=== PATIENT | female | born 1950 | race Two or more races ===

== ENCOUNTER 2022-08-04 15:05 | Inpatient (IN) | payer OTHER, MEDICAID ==
[~2022-08-04] VITALS: Ht 157.5 cm; Wt 64.8 kg
[2022-08-04 15:37] LABS: Basophils # (auto) 0.1 10 ^3/uL (0-0.2); Basophils % (auto) 0.9 % (0.0-2.0); Eosinophils # (auto) 0.1 10 ^3/uL (0-0.8); Eosinophils % (auto) 0.8 % (0.0-7.0); Hematocrit 38.4 % (36.0-46.0); Hemoglobin 12.9 g/dL (12.2-16.2); Lymphocytes # (auto) 2.4 10 ^3/uL (0.4-5.4); Lymphocytes % (auto) 25.6 % (10.0-50.0); Mean Corpuscular Hemoglobin 29.8 pg (28.0-32.0); Mean Corpuscular Hgb Conc. 33.6 g/dL (32.0-36.0); Mean Corpuscular Volume 88.6 fL (80.0-100.0); Monocytes # (auto) 0.6 10 ^3/uL (0-1.3); Monocytes % (auto) 6.3 % (0.0-12.0); Neutrophils # (auto) 6.3 10 ^3/uL (1.6-8.6); Neutrophils % (auto) 66.4 % (37.0-80.0); Nucleated Red Blood Cells % 0.1 %; Red Blood Cells 4.33 10^6/uL (4.0-5.20); Red Cell Distribution Width 14.2 % (11.8-14.3); White Blood Cell 9.5 10^3/uL (4.4-10.8)
[2022-08-04 15:48] LABS: Albumin 3.5 g/dL (3.4-5.0); Calcium 8.2 mg/dL (8.5-10.1); Magnesium 2.2 mg/dL (1.6-2.6); Potassium 3.9 mmol/L (3.5-5.1)
[2022-08-04 15:51] LABS: BUN/Creatinine Ratio 20.5 (10.0-20.0); Bilirubin, Total 0.4 mg/dL (0.2-1.0); Total Protein 6.7 g/dL (6.4-8.2)
[2022-08-04 15:59] LABS: INR 0.92 (0.9-1.15); Partial Thromboplastin Time 24.1 sec (24.6-33.4)
[2022-08-04] MEDS ORDERED: ASPirin 81 mg TAB PO ONE (19:45)
[2022-08-04 20:47] LABS: INR 0.97 (0.9-1.15); Partial Thromboplastin Time 24.5 sec (24.6-33.4)
[2022-08-04 21:26] LABS: Urine Bacteria FEW /hpf (None Seen); Urine Blood Negative /uL (Negative); Urine Specific Gravity 1.009 (1.001-1.035); Urine WBC 2 /hpf (0 - 5)
[2022-08-04] MEDS ORDERED: IOHEXOL 350 MG/ML 100ML IJ ONE (22:47)
[2022-08-05] MEDS ORDERED: MORPHINE SULFATE INJ 2 MG/ml SYRG IV PRN (01:15)
[2022-08-05] MEDS ORDERED: NITROGLYCERIN 0.4 MG SL TAB SL PRN (01:15)
[2022-08-05] MEDS ORDERED: cefTRIAXone 1GM/50ML D5W 50 ML IV ONE (01:15)
[2022-08-05] MEDS ORDERED: DOCUSATE SOD 100 MG CAP PO PRN (01:15)
[2022-08-05] MEDS ORDERED: ACETAMINOPHEN 325 MG TAB PO PRN (01:15)
[2022-08-05] MEDS ORDERED: ONDANSETRON HCL 4 MG/2 ML VIAL IV PRN (01:15)
[2022-08-05] MEDS: HYDROcodone-ACET 5/325MG TAB PO PRN ×2 (02:18→22:39)
[2022-08-05 05:35] LABS: Basophils # (auto) 0 10 ^3/uL (0-0.2); Basophils % (auto) 0.6 % (0.0-2.0); Eosinophils # (auto) 0.1 10 ^3/uL (0-0.8); Eosinophils % (auto) 1.6 % (0.0-7.0); Hematocrit 35.7 % (36.0-46.0); Lymphocytes # (auto) 2.9 10 ^3/uL (0.4-5.4); Lymphocytes % (auto) 37.6 % (10.0-50.0); Mean Corpuscular Hgb Conc. 33.7 g/dL (32.0-36.0); Mean Corpuscular Volume 89.1 fL (80.0-100.0); Monocytes # (auto) 0.6 10 ^3/uL (0-1.3); Monocytes % (auto) 7.5 % (0.0-12.0); Neutrophils # (auto) 4.1 10 ^3/uL (1.6-8.6); Neutrophils % (auto) 52.7 % (37.0-80.0); Nucleated Red Blood Cells % 0.1 %; Red Cell Distribution Width 14.7 % (11.8-14.3); White Blood Cell 7.7 10^3/uL (4.4-10.8)
[2022-08-05 05:46] LABS: BUN/Creatinine Ratio 16.1 (10.0-20.0); Bilirubin, Total 0.4 mg/dL (0.2-1.0); Calcium 8.2 mg/dL (8.5-10.1)
[2022-08-05] MEDS: SODIUM CHLOR 0.9% PF (SALINE LOCK) 10ML VIAL/SYR IV SCH ×3 (06:11→22:00)
[2022-08-05] MEDS ORDERED: NITR100C6 PO (10:27)
[2022-08-05] MEDS ORDERED: CHOL200031 PO (10:27)
[2022-08-05] MEDS ORDERED: TIZA4CAP PO (10:27)
[2022-08-05] MEDS ORDERED: OMEP20TA PO (10:27)
[2022-08-05] MEDS ORDERED: NAP500T PO (10:27)
[2022-08-05] MEDS ORDERED: PRED20TA2 PO (10:27)
[2022-08-05] MEDS ORDERED: CEL100T PO (10:27)
[2022-08-05] MEDS ORDERED: OXYB5SOL PO (10:27)
[2022-08-05] MEDS ORDERED: GABA-1308 PO (10:27)
[2022-08-05] MEDS ORDERED: ACET5SOL5 PO (10:27)
[2022-08-05] MEDS: ASPirin 81 mg TAB PO SCH (11:17)
[2022-08-05] MEDS: FAMOTIDINE (10MG/ML) 2ML VL IV SCH (11:17)
[2022-08-05] MEDS: cefTRIAXone 1GM/50ML D5W 50 ML IV SCH (11:17)
[2022-08-05 15:01] LABS: INR 0.99 (0.9-1.15); Partial Thromboplastin Time 24.6 sec (24.6-33.4)
[2022-08-05 22:00] VITALS: BP 113/68
[2022-08-06] MEDS: HYDROcodone-ACET 5/325MG TAB PO PRN (03:41)
[2022-08-06 05:00] VITALS: BP 123/66
[2022-08-06] MEDS: SODIUM CHLOR 0.9% PF (SALINE LOCK) 10ML VIAL/SYR IV SCH ×3 (05:50→21:08)
[2022-08-06 06:11] LABS: Basophils # (auto) 0.1 10 ^3/uL (0-0.2); Eosinophils # (auto) 0.1 10 ^3/uL (0-0.8); Eosinophils % (auto) 2.2 % (0.0-7.0); Hematocrit 35.8 % (36.0-46.0); Hemoglobin 12.1 g/dL (12.2-16.2); Lymphocytes % (auto) 44.2 % (10.0-50.0); Mean Corpuscular Hgb Conc. 33.7 g/dL (32.0-36.0); Mean Corpuscular Volume 89.1 fL (80.0-100.0); Monocytes # (auto) 0.6 10 ^3/uL (0-1.3); Monocytes % (auto) 8.5 % (0.0-12.0); Neutrophils % (auto) 44.1 % (37.0-80.0); Red Blood Cells 4.02 10^6/uL (4.0-5.20); Red Cell Distribution Width 14.3 % (11.8-14.3); White Blood Cell 6.8 10^3/uL (4.4-10.8)
[2022-08-06 06:24] LABS: Albumin 2.8 g/dL (3.4-5.0); Calcium 8.4 mg/dL (8.5-10.1); Potassium 4.2 mmol/L (3.5-5.1)
[2022-08-06 06:28] LABS: BUN/Creatinine Ratio 21.2 (10.0-20.0); Bilirubin, Total 0.3 mg/dL (0.2-1.0); Total Protein 5.8 g/dL (6.4-8.2)
[2022-08-06 09:00] VITALS: BP 123/67
[2022-08-06] MEDS: FAMOTIDINE (10MG/ML) 2ML VL IV SCH (11:33)
[2022-08-06] MEDS: cefTRIAXone 1GM/50ML D5W 50 ML IV SCH (11:33)
[2022-08-06] MEDS: ASPirin 81 mg TAB PO SCH (11:37)
[2022-08-06 13:00] VITALS: BP 117/51
[2022-08-06 17:26] VITALS: BP 106/57
[2022-08-06 22:00] VITALS: BP 115/51
[2022-08-07 05:00] VITALS: BP 139/80
[2022-08-07] MEDS: SODIUM CHLOR 0.9% PF (SALINE LOCK) 10ML VIAL/SYR IV SCH ×2 (06:00→08:29)
[2022-08-07] MEDS ORDERED: UBRO50TA2 PO (07:28)
[2022-08-07] MEDS ORDERED: ALBU108A5 INH (07:28)
[2022-08-07] MEDS ORDERED: OXYB5TAB10 (07:28)
[2022-08-07] MEDS ORDERED: TRAM50TA2 PO (07:28)
[2022-08-07] MEDS ORDERED: CELE1CAP8 PO (07:28)
[2022-08-07] MEDS: FAMOTIDINE (10MG/ML) 2ML VL IV SCH (08:29)
[2022-08-07] MEDS: cefTRIAXone 1GM/50ML D5W 50 ML IV SCH (08:29)
[2022-08-07] MEDS: ASPirin 81 mg TAB PO SCH (08:29)
[2022-08-07] MEDS ORDERED: ADENOSINE 54 MG in GIVE UN-DILUTED 0 ML IV STA (08:33)
[2022-08-07 09:29] VITALS: BP 112/69
[2022-08-07 09:42] VITALS: BP 133/74
[2022-08-07 12:59] VITALS: BP 131/59
== END 2022-08-07 15:21 | disposition home or self-care (01) | DRG 313 ==
LOC: ER 15:05 → TELE 08-05 01:07 → TELE-WESTW 08-05 01:16
PROVIDERS: ADMIT Nurse Practitioner Family; ATTEND Internal Medicine Geriatric Medicine
DX: R07.89 Other chest pain (principal); E44.1 Mild protein-calorie malnutrition; N39.0 Urinary tract infection, site not specified; K44.9 Diaphragmatic hernia without obstruction or gangrene; I44.7 Left bundle-branch block, unspecified; I10 Essential (primary) hypertension; Z68.26 Body mass index [BMI] 26.0-26.9, adult
CPT/HCPCS: 36415; 71045; 71275; 78452; 80053; 80061; 81001; 83735; 83880; 84484; 85025; 85379; 85610; 85730; 87086; 93005; 93017; 93306; 96365; G0378; J0153; J0696; J3490